=== PATIENT | male | born 1990 | race Caucasian/White ===

== ENCOUNTER 2017-10-22 06:02 | Day surgery (SDC) | END 2017-10-22 11:20 | disposition home or self-care (01) ==

== ENCOUNTER 2018-08-09 15:23 | Emergency (ER) | END 2018-08-09 17:33 | disposition home or self-care (01) ==

== ENCOUNTER 2019-02-08 11:57 | Emergency (ER) | payer OTHER ==
[~2019-02-08] VITALS: Ht 167.6 cm; Wt 64.2 kg
[~2019-02-08 11:57] MED LIST: No Medications; PRED20TA PO
[2019-02-08 12:03] VITALS: Ht 167.6 cm; Wt 64.2 kg
[2019-02-08] MEDS ORDERED: ONDANSETRON 4 MG INJ IV STA (12:24)
[2019-02-08] MEDS ORDERED: morphine 4 MG/ML VIAL IV STA (12:24)
[2019-02-08] MEDS ORDERED: SOD CHLORIDE 0.9% 1,000 ML IV STA (12:24)
[2019-02-08] MEDS ORDERED: SOD CHLORIDE 0.9% 100 ML ONE (13:41)
[2019-02-08] MEDS ORDERED: IOHEXOL 300MG/ML 150 ML BTL ONE (13:41)
[2019-02-08] MEDS ORDERED: CIPR500T4 PO (14:45)
[2019-02-08] MEDS ORDERED: METR500T PO (14:45)
[2019-02-08] MEDS ORDERED: PRED20TA PO (14:45)
[2019-02-08 14:56] VITALS: BP 125/80; PULSE 89; RESP 18
--- NOTE | 2019-02-08 15:26 | ERD ---
ER Documentation Chief Complaint Chief Complaint LLQ PAIN - HX TO ULCERATIVE COLITIS HPI 28-year-old male presenting with abdominal pain. Patient has a history of ulcerative colitis over the last 8 years. He states over the last month his pain is worsened and he feels that his stomach is "blowing up". He has been taking medication prescribed by his GI doctor which is not alleviating symptoms his symptoms. He has been unable to obtain a new appointment with his GI specialist. Denies any fevers. Denies bloody stool. Patient has ulcerative colitis and depression. NKDA. Surgical history denies. Social history denies ROS All systems reviewed and are negative except as per history of present illness. Medications Home Meds Active Scripts Metronidazole* (Flagyl*) 500 Mg Tablet, 500 MG PO TID for 7 Days, TAB Prov:MARCIANO GARCIA PA-C 02/08/19 Ciprofloxacin Hcl* (Ciprofloxacin Hcl*) 500 Mg Tablet, 500 MG PO BID for 7 Days, TAB Prov:MARCIANO GARCIA PA-C 02/08/19 Prednisone* (Prednisone*) 20 Mg Tab, 60 MG PO DAILY for 4 Days, TAB Prov:MARCIANO GARCIA PA-C 02/08/19 Prednisone* (Prednisone*) 20 Mg Tab, 60 MG PO DAILY for 5 Days, TAB Prov:DANIEL BLACKBURN PA-C 08/09/18 Reported Medications [No Medications] No Conflict Check 10/22/17 Allergies Allergies: Coded Allergies: No Known Allergy (Unverified , 02/08/19) PMhx/Soc History of Surgery: No Anesthesia Reaction: No Hx Neurological Disorder: No Hx Respiratory Disorders: No Hx Cardiac Disorders: No Hx Psychiatric Problems: No Hx Miscellaneous Medical Probl: Yes (ULCERATIVE COLITIS) Hx Alcohol Use: Yes (former) Hx Substance Use: Yes (marijuana) Hx Tobacco Use: No FmHx Family History: No diabetes, No coronary disease, No other Physical Exam Vitals Vital Signs Date Temp Pulse Resp B/P (MAP) Pulse Ox O2 O2 Flow FiO2 Time Delivery Rate 02/08/19 97.1 89 18 125/80 99 Room Air 14:56 (95) 02/08/19 97.7 76 19 126/68 99 12:03 (87) Physical Exam GENERAL: The patient is well-appearing, well-nourished, in no acute distress HEENT: Atraumatic. Conjunctivae are pink. Pupils equal, round, and reactive to light. There is no scleral icterus. Tympanic membranes clear bilaterally. Oropharynx clear. NECK: C-spine is soft and supple. There is no meningismus. There is no cervical lymphadenopathy. CHEST: Clear to auscultation bilaterally. There are no rales, wheezes or rhonchi. HEART: Regular rate and rhythm. No murmurs, clicks, rubs or gallops. ABDOMEN: Full active bowel sounds. No distention. No organomegaly. Tender to palpation in the lower quadrant. Result Diagram: 02/08/19 1235 02/08/19 1235 Results 24 hrs Laboratory Tests Test 02/08/19 12:35 White Blood Count 9.1 10^3/ul Red Blood Count 5.17 10^6/ul Hemoglobin 13.8 g/dl Hematocrit 43.2 % Mean Corpuscular Volume 83.6 fl Mean Corpuscular Hemoglobin 26.7 pg Mean Corpuscular Hemoglobin Concent 31.9 g/dl Red Cell Distribution Width 15.5 % Platelet Count 289 10^3/UL Mean Platelet Volume 9.7 fl Immature Granulocytes % 0.200 % Neutrophils % 67.8 % Lymphocytes % 20.1 % Monocytes % 6.6 % Eosinophils % 4.6 % Basophils % 0.7 % Nucleated Red Blood Cells % 0.0 /100WBC Immature Granulocytes # 0.020 10^3/ul Neutrophils # 6.2 10^3/ul Lymphocytes # 1.8 10^3/ul Monocytes # 0.6 10^3/ul Eosinophils # 0.4 10^3/ul Basophils # 0.1 10^3/ul Nucleated Red Blood Cells # 0.0 10^3/ul Urine Color YELLOW Urine Clarity CLOUDY Urine pH 8.0 Urine Specific [place] 1.019 Urine Ketones TRACE mg/dL Urine Nitrite NEGATIVE mg/dL Urine Bilirubin NEGATIVE mg/dL Urine Urobilinogen NEGATIVE mg/dL Urine Leukocyte Esterase NEGATIVE Berry/ul Urine Microscopic RBC 2 /HPF Urine Microscopic WBC 3 /HPF Urine Amorphous Crystals MODERATE /HPF Urine Mucus FEW /HPF Urine Hemoglobin NEGATIVE mg/dL Urine Glucose NEGATIVE mg/dL Urine Total Protein NEGATIVE mg/dl Sodium Level 144 mmol/L Potassium Level 4.7 mmol/L Chloride Level 105 mmol/L Carbon Dioxide Level 30 mmol/L Anion Gap 9 Blood Urea Nitrogen 15 mg/dl Creatinine 0.97 mg/dl Est Glomerular Filtrat Rate mL/min > 60 mL/min Glucose Level 101 mg/dl Calcium Level 9.9 mg/dl Total Bilirubin 0.3 mg/dl Direct Bilirubin 0.00 mg/dl Indirect Bilirubin 0.3 mg/dl Aspartate Amino Transf (AST/SGOT) 23 IU/L Alanine Aminotransferase (ALT/SGPT) 21 IU/L Alkaline Phosphatase 100 IU/L Total Protein 8.6 g/dl Albumin 4.7 g/dl Globulin 3.90 g/dl Albumin/Globulin Ratio 1.20 Lipase 94 U/L Current Medications Medications Dose Sig/Diya Start Time Status Last (Trade) Ordered Route PRN Stop Time Admin Dose Reason Admin Sodium 1,000 ml @ Q1H STAT 02/08/19 DC 02/08/19 Chloride 1,000 mls/hr IV 12:24 02/08/19 12:36 13:23 Morphine 4 mg ONCE STAT 02/08/19 DC 02/08/19 Sulfate IV 12:24 02/08/19 12:36 (morphine) 12:26 Ondansetron 4 mg ONCE STAT 02/08/19 DC 02/08/19 HCl (Zofran IV 12:24 02/08/19 12:36 Inj) 12:26 IV Flush 10 ml STK-MED 02/08/19 DC 02/08/19 (NS 10 ml) ONCE .ROUTE 13:41 02/08/19 13:55 13:42 Sodium 100 ml @ ud STK-MED 02/08/19 DC 02/08/19 Chloride ONCE .ROUTE 13:41 02/08/19 13:55 13:42 Iohexol 150 ml STK-MED 02/08/19 DC 02/08/19 (Omnipaque ONCE .ROUTE 13:41 02/08/19 13:55 300mg/ ml) 13:42 Procedures/MDM DIAGNOSTIC IMAGING REPORT Patient: SALMA HARGROVE : 1990 Age: 28 Sex: M MR #: [id number] DOS: 02/08/19 1224 Ordering MD: CHIQUITA GARCIA PA-C Location: [facility] Room/Bed: PROCEDURE: CT Abdomen and Pelvis With Intravenous Contrast CLINICAL INDICATION: Abdominal pain. History of ulcerative colitis. TECHNIQUE: Axial computed tomography images of the abdomen and pelvis with intravenous contrast. Sagittal and coronal reformatted images were created and reviewed. CTDIvol (mGy) = 6.8; total DLP (mGy-cm) = 382. This CT exam was performed using one or more of the following dose reduction techniques: automated exposure control, adjustment of the mA and/or kV according to patient size, and/or use of iterative reconstruction technique. DICOM images are available. CONTRAST: 100 mL of Omnipaque-300 was administered intravenously. COMPARISON: None FINDINGS: LUNG BASES: Normal. No mass. No consolidation. ABDOMEN: LIVER: Normal. No mass. GALLBLADDER AND BILE DUCTS: Normal. No calcified stones. No ductal dilation. PANCREAS: Normal. No mass. No ductal dilation. SPLEEN: Normal. No splenomegaly. ADRENALS: Normal. No mass. KIDNEYS AND URETERS: Bilateral nonobstructing renal calculi. Small bilateral renal cysts measuring up to 8 mm. STOMACH AND BOWEL: Decompressed rectosigmoid colon with slightly thickened jones. No obstruction. PELVIS: APPENDIX: No findings to suggest acute appendicitis. BLADDER: Normal. No mass. REPRODUCTIVE: Unremarkable as visualized. ABDOMEN and PELVIS: INTRAPERITONEAL SPACE: Normal. No free air. No significant fluid collection. BONES/JOINTS: No acute fracture. No dislocation. SOFT TISSUES: Normal. VASCULATURE: Normal. No abdominal aortic aneurysm. LYMPH NODES: Normal. No enlarged lymph nodes. IMPRESSION: 1. Bilateral nonobstructing renal calculi. 2. Decompressed rectosigmoid colon with slightly thickened jones. Question artifact due to nondistension versus mild colitis. 3. Otherwise unremarkable contrast enhanced CT abdomen and pelvis without acute pathology identified. MDM: 8-year-old male presenting with ulcerative colitis and abdominal pain. Patient does have inflammatory changes noted on his CT scan. I will treat with antibiotics given patient has had increasing pain over the last few months. Patient is afebrile. I have low suspicion for perforated bowel or abscess fo rmation. Patient is discharged with strict ER precautions. Patient is told symptoms change or worsen to return immediately to the ER. I have low suspicion for hemodynamic instability. Patient is recommended to follow-up with his GI specialist as he needs to have medications changed. Patient is told to follow- up with primary doctor to investigate possible food allergens. All questions answered at discharge Departure Diagnosis: Primary Impression: Ulcerative colitis Condition: Stable Patient Instructions: Ulcerative Colitis Referrals: [facility] (PCP) Additional Instructions: FOLLOW UP WITH YOUR PRIMARY CARE PHYSICIAN TOMORROW.Return to this facility if you are not improving as expected. MARCIANO GARCIA PA-C Feb 08, 2019 15:26
== END 2019-02-08 14:57 | disposition home or self-care (01) ==
LOC: FTE 11:57
DX: K51.90 Ulcerative colitis, unspecified, without complications (principal)
CPT/HCPCS: 36415; 74177; 80053; 81001; 83690; 85025; 96374; 96375; J2270; J2405; J7030; Q9967; Z7502; Z7610

== ENCOUNTER 2019-02-11 10:55 | Emergency (ER) | payer OTHER ==
[~2019-02-11] VITALS: Ht 167.6 cm; Wt 66.4 kg
[~2019-02-11 10:55] MED LIST changes: +CIPR500T4 PO; +METR500T PO
[2019-02-11 11:04] VITALS: Ht 167.6 cm; Wt 66.4 kg
[2019-02-11] MEDS ORDERED: HYDR-3980 PO (12:28)
[2019-02-11] MEDS ORDERED: NALO4SPR NS (12:28)
[2019-02-11] MEDS ORDERED: PRED20TA PO (12:28)
--- NOTE | 2019-02-11 12:38 | ERD ---
ER Documentation Chief Complaint Chief Complaint abd pain with diarrhea, blood in stool x 6 days h/o ulcerative colitis HPI 28-year-old male presents with 10-year history of ulcerative colitis. He has regular blood with bowel movements pain but this is his baseline. He has regular gastroenterology follow-up. He just recently completed a course of steroids. Denies fevers, vomiting. He states that he has worsening symptoms when he eats which prompted bowel movements which are intolerable due to his UC symptoms. He is requesting medication for pain as he has difficulty obtaining medication for his symptoms as his primary doctor retired and his gastroenterology only sees him for colonoscopies. ROS All systems reviewed and are negative except as per history of present illness. Medications Home Meds Active Scripts Naloxone HCl nasal spray (Narcan 4 mg/0.1 mL nasal) 4 Mg [place], 4 MG NS .Q2MIN PRN for OPIOID OVERDOSE, #2 SPRAY [place] entire contents in one nostril, may repeat in alternate nostril in 2-3 minutes if no or minimal response Prov:BERTRAM HOLT MD 02/11/19 Hydrocodone/Acetaminophen (Moro 10-325 Tablet) 1 Each Tablet, 1 TAB PO Q6H PRN for PAIN, #15 TAB Prov:BERTRAM HOLT MD 02/11/19 Prednisone* (Prednisone*) 20 Mg Tab, 40 MG PO DAILY for 8 Days, #12 TAB 40 mg by mouth for 4 days then 20 mg by mouth for 4 days. Prov:BERTRAM HOLT MD 02/11/19 Metronidazole* (Flagyl*) 500 Mg Tablet, 500 MG PO TID for 7 Days, TAB Prov:MARCIANO GARCIA PA-C 02/08/19 Ciprofloxacin Hcl* (Ciprofloxacin Hcl*) 500 Mg Tablet, 500 MG PO BID for 7 Days, TAB Prov:MARCIANO GARCIA PA-C 02/08/19 Prednisone* (Prednisone*) 20 Mg Tab, 60 MG PO DAILY for 4 Days, TAB Prov:MARCIANO GARCIA PA-C 02/08/19 Prednisone* (Prednisone*) 20 Mg Tab, 60 MG PO DAILY for 5 Days, TAB Prov:DANIEL BLACKBURN PA-C 08/09/18 Reported Medications [No Medications] No Conflict Check 2/16/18 Allergies Allergies: Coded Allergies: No Known Allergy (Unverified , 02/08/19) PMhx/Soc Medical and Surgical Hx: pt denies Surgical Hx History of Surgery: No Anesthesia Reaction: No Hx Neurological Disorder: No Hx Respiratory Disorders: No Hx Cardiac Disorders: No Hx Psychiatric Problems: No Hx Miscellaneous Medical Probl: Yes (ULCERATIVE COLITIS) Hx Alcohol Use: Yes (former) Hx Substance Use: Yes (marijuana) Hx Tobacco Use: No Smoking Status: Never smoker FmHx Family History: No diabetes, No coronary disease, No other Physical Exam Vitals Vital Signs Date Temp Pulse Resp B/P (MAP) Pulse Ox O2 O2 Flow FiO2 Time Delivery Rate 02/11/19 98.1 68 18 133/61 99 11:04 (85) Physical Exam Const: No acute distress Head: Atraumatic Eyes: Normal Conjunctiva ENT: Normal External Ears, Nose and Mouth. Neck: Full range of motion. No meningismus. Resp: Clear to auscultation bilaterally Cardio: Regular rate and rhythm, no murmurs Abd: Soft, no lower abdominal tenderness without rebound or masses. Non distended. Normal bowel sounds Skin: No petechiae or rashes Back: No midline or flank tenderness Ext: No cyanosis, or edema Neur: Awake and alert Psych: Normal Mood and Affect Procedures/MDM Conversation was held with patient regarding chronicity of his disease. He is here with his mother who shares frustration that he does not feel he is getting proper outpatient symptom control. Patient expresses frustration that he has to come to the ER for unnecessary work-up when symptoms become intolerable and he has to resort to the ER. . Patient was encouraged to continue finding primary doctor who can manage his symptoms and outpatient. There are no CURES alerts on [facility] report. Patient states that his symptoms are currently at baseline without symptoms to suggest complications such as obstruction or abscess. IV fluids, recheck of labs was offered but patient declines. Patient is amenable to continuation of prednisone and a short course of pain medicine until he can con tinue to work on finding a new primary care doctor. Patient will be given a short course of Moro as well as Narcan per medical board guidelines for acute on chronic pain. Patient was nonetheless counseled to avoid future use of emergency room for chronic medication. He should however return for fevers, vomiting, worsening pain, new worsening symptoms. The patient was stable with no new complaints during the ER course. Clinically, there is no current evidence to suggest meningitis, sepsis, acute abdomen, pneumonia, stroke, acute coronary syndrome, pulmonary embolism, aortic dissection or any other emergent condition appearing to require further evaluation or hospitalization. Patient counseled regarding my diagnostic impression and care plan. Prior to discharge all questions answered. Pt agrees with treatment plan and understands strict return precautions. Pt is instructed to follow up with primary care provider within 24- 48 hours. Precautionary instructions provided including instructions to return to the ER if not improving or for any worsening or changing symptoms or concerns. Disclaimer: Inadvertent spelling and grammatical errors are likely due to EHR/dictation software use and do not reflect on the overall quality of patient care. Also, please note that the electronic time recorded on this note does not necessarily reflect the actual time of the patient encounter. Departure Diagnosis: Primary Impression: Abdominal pain Abdominal location: unspecified location Qualified Codes: R10.9 - Unspecified abdominal pain Additional Impression: Ulcerative colitis Ulcerative colitis location: unspecified ulcerative colitis location Digestive disease complication type: unspecified complication Qualified Codes: K51.919 - Ulcerative colitis, unspecified with unspecified complications Condition: Stable Patient Instructions: Abdominal Pain Referrals: NO PRIMARY,CARE PHYSICIAN (PCP) Additional Instructions: Recheck for fevers, vomiting, new worsening symptoms of ulcerative colitis. See primary doctor and gastroenterology for ongoing care. Avoid use of emergency department for chronic medications. BERTRAM HOLT MD Feb 11, 2019 12:38
[2019-02-11 13:14] VITALS: BP 134/83; PULSE 66; RESP 18
== END 2019-02-11 13:15 | disposition home or self-care (01) ==
LOC: FTE 10:55
DX: K51.919 Ulcerative colitis, unspecified with unspecified complications (principal)
CPT/HCPCS: 99283